=== PATIENT | male | born 1950 | race Caucasian/White ===

== ENCOUNTER 2024-05-12 12:52 | Emergency (ER) | payer MEDICARE, SELFPAY ==
[2024-05-12 12:58] VITALS: BP 143/81
--- NOTE | 2024-05-12 13:43 | ED.GENMED ---
History of Present Illness
General
Chief Complaint: Head Injury
Source: patient
Exam Limitations: none
Time Seen by Provider: 05/12/24 13:39
History of Present Illness
History of Present Illness:
See MDM
Past History
Past History
ED Past Medical History: GERD, Hypercholesterolemia and NIDDM
ED Past Surgical History: Orthopedic
Phy Exam
Physical Exam
Physical Exam:
See MDM
Course
Orders/Labs/Results
Orders:
Orders
05/12/24 13:42
CT Head W/o Iv Contrast Urgent
Comment:
Reason For Exam: left forehead injury, headache
Acetaminophen [Tylenol] 650 mg PO NOW STA
Vital Signs
Initial and Last Documented VS:
Initial Vital Signs
Temp Pulse Resp BP Pulse Ox
98.3 F 88 16 143/81 96
05/12/24 12:58 05/12/24 12:58 05/12/24 12:58 05/12/24 12:58 05/12/24 12:58
Last Documented Vital Signs
Temp Pulse Resp BP Pulse Ox
98.3 F 88 16 143/81 96
05/12/24 12:58 05/12/24 12:58 05/12/24 12:58 05/12/24 12:58 05/12/24 12:58
MDM/Problems Addressed
Differential Diagnosis Includes:
HPI and MDM Narrative:
73-year-old male presenting with left forehead injury. Patient was in a golf cart and he states that the seat came undone and he fell out of the cart. His friend then fell on him. He hit the left side of his head against the floor. He states his
tetanus is up-to-date. He denies nausea or vomiting. He has mild headache. Given age and complaint, will obtain CT head
Physical exam
General: Well appearing and non-toxic
HEENT: protecting airway. Left forehead abrasion
Neck: supple
CV: No evidence of cyanosis
Resp: No accessory muscle use
Abd: Non-distended
Extremities: No deformities
Neuro: alert
Psych: Normal affect
Skin: Skin abrasion to left forehead. Multiple small abrasions to dorsum of both hands
Problems Addressed including Acute and Chronic Conditions affecting care:
1. Head injury
Acuity: acute
Prognosis: stable
Details: Will obtain CT head
Updates
CT head negative. Patient feels comfortable going home
Differential Diagnosis (but not limited to): Abrasion, concussion, subdural hematoma
Testing considered: CT neck but there is no tenderness
Drug therapy (if applicable): OTC meds, please see d/c instruction regarding Rx drugs
Amount and/or Complexity of Data Reviewed
Clinical info obtained from: Patient
External data reviewed: N/A
Labs I independently reviewed (but not limited to): N/A
Radiology: The CT scan was personally and independently reviewed. In addition, official CT report reviewed.
Pulse Ox: not hypoxic
EKG independently reviewed: N/A
Global Security Architect: N/A
Critical Care: N/A
Risk of Complication:
Social Determinants of health: Good social support
Discussed with other providers: N/A
Escalation of Care includes Admit/Obs: After being observed in the Emergency Department, pt stable for discharge.
Occasional wrong word or 'sound a like' substitutions may have occurred due to the inherent limitations of voice recognition software. Read the chart carefully and recognize, using context, where substitutions have occurred.
*Critical Care Note
Total Time (30-74mins, 75-104mins- exclusive of procedures): Not Applicable
ED Attending Note
-
Portions of this chart may have been created with voice recognition software.� Occasional wrong word or��sound alike� substitutions may have occurred due to the inherent limitations of voice recognition software.
Discharge Plan
Departure
Patient Disposition: Home (Routine Discharge)
Date of Disposition: 05/12/24
Time of Disposition: 14:57
Patient with high blood pressure during this ER visit?: No
Discharge Problem:
Head injury
Instructions: Minor Head Injury (DC)
Prescriptions:
No Action
atorvastatin 40 MG tablet
40 mg PO QPM
zolpidem 10 MG tablet
10 mg PO HS
sertraline 50 MG tablet
50 mg PO QPM
metformin 750 MG tablet extended release 24 hr
2,250 mg PO QPM
cannabidiol [Epidiolex] 1 UNIT solution
1 unit PO PRN PRN (Reason: pain)
Calcium Citrate
500 mg PO QPM
oxycodone 5 MG tablet
5 mg PO Q6HPRN PRN (Reason: moderate-severe pain) Qty: 30 0RF
Rx Instructions:
1 tab moderate pain or 2 if pain severe
Dx total joint replacement
ongoing therapy
famotidine 20 MG tablet
20 mg PO HS Qty: 30 0RF
mupirocin 1 APPLIC ointment
1 applic intranasal BID Qty: 1 0RF
acetaminophen 500 MG tablet
1,000 mg PO Q6H Qty: 1 0RF
Rx Instructions:
Do not exceed >4000 mg daily
aspirin 325 MG tablet
325 mg PO Daily Qty: 1 0RF
Rx Instructions:
Take daily x4 weeks for blood clot prevention.
docusate sodium 100 MG capsule
100 mg PO BID Qty: 1 0RF
sennosides [senna] 8.6 MG tablet
8.6 mg PO BID Qty: 2 0RF
lorazepam 0.5 MG tablet
0.5 mg PO Q8HPRN PRN (Reason: anxiety/insomnia) Qty: 0 0RF
Rx Instructions:
Home medication.
Use sparingly with Oxycodone - can cause drowsiness!
ibuprofen 200 MG tablet
400 mg PO BID Qty: 0 0RF
Rx Instructions:
Take with food.
Do not take within 2 hours of Aspirin.
Referrals:
Olivia Gabriel, DO [Family Provider] -
Activity Restrictions/Additional Instructions:
Please return for any worsening symptoms.
You may return at any time if you have further concerns.
Please follow up with your doctor at the first available appointment, preferably this week.
Thank you for choosing [facility].
Interventions
Interventions:
*Risk Screen - Suicide Last Done: 05/12/24 12:58
*General Assessment Last Done: 05/12/24 12:58
*Neglect/Abuse Screening Last Done: 05/12/24 12:58
*ED COVID-19 Vaccine History Last Done: 05/12/24 14:29
ED- Neurological Assessment Last Done: 05/12/24 14:29
ED-Skin Assessment Last Done: 05/12/24 14:29
Discharge Date and Time
Print Language: [id number]
[2024-05-12] MEDS: TYLENOL 650 MG PO (14:33)
== END 2024-05-12 15:04 | disposition home or self-care (01) ==
LOC: EMR 12:52
PROVIDERS: EMERGENCY PHYSICIAN Student in an Organized Health Care Education/Training Program; FAMILY PHYSICIAN Family Medicine
DX: S09.90XA Unspecified injury of head, initial encounter (principal); V86.99XA Unspecified occupant of other special all-terrain or other off-road motor vehicle injured in nontraffic accident, initial encounter
CPT/HCPCS: 99284; 70450

== ENCOUNTER → 2024-05-21 09:25 | Outpatient (REF) | payer MEDICARE, SELFPAY | LOC: HWRAD 09:25 | PROVIDERS: ATTENDING PHYSICIAN Chiropractor; FAMILY PHYSICIAN Family Medicine | DX: S63.502A Unspecified sprain of left wrist, initial encounter (principal) | CPT/HCPCS: 73110 ==

== ENCOUNTER 2025-06-09 06:19 | Day surgery (SDC) | payer OTHER, SELFPAY ==
[2025-06-09] VITALS (9 sets, daily range): BP systolic 118–165; BP diastolic 62–89; BMI 25.5
[2025-06-09 08:31] LABS: Glucose - Point of Care 130 mg/dl (70-99)
[2025-06-09] MEDS: TYLENOL 1000 MG PO (08:33)
[2025-06-09] MEDS: NORMOSOL-R/PLASMALYTE-A 1000 IV (08:34)
[2025-06-09 10:48] LABS: Glucose - Point of Care 125 mg/dl (70-99)
== END 2025-06-09 12:11 | disposition home or self-care (01) ==
LOC: SDS 06:19
PROVIDERS: ATTENDING PHYSICIAN Otolaryngology
DX: H72.91 Unspecified perforation of tympanic membrane, right ear (principal)
CPT/HCPCS: 69631; 15769; 82962